=== PATIENT | female | born 1945 | race Hispanic/Latino ===

== ENCOUNTER 2017-08-09 12:43 | Outpatient (CLI) | payer MEDICARE, BC ==
--- NOTE | 2017-08-09 14:17 | CT ---
CTA OF THE CHEST CTA OF THE ABDOMEN CTA OF THE PELVIS WITH CONTRAST: COMPARISON: 07/27/16. HISTORY: Thoracic aortic aneurysm repair in 2014. History of breast cancer status post chemotherapy. TECHNIQUE: Multiple contiguous axial images were obtained in a CTA of the chest, abdomen, and pelvis with contr ast. Three-D sagittal and coronal MIP reformats were performed. FINDINGS: The patient is status post stent graft repair of the descending thoracic aorta with overlapping sten ts. The aorta measures 2.9 cm in greatest dimension. The stent extends from below the takeoff of t he left subclavian artery down to just below the diaphragm and above the celiac trunk. The ascendin g aorta in the chest has a normal caliber without evidence of aneurysmal dilatation. The heart is normal in size without focal cardiac abnormality. No hilar or mediastinal lymphadenopa thy are seen. Increased interstitial lung markings are seen along the periphery of the lungs. This is most promin ent in the lung apices and in the lung bases. Bronchiectasis is seen in both lung apices. No suspi cious pulmonary mass is seen. No pneumothorax or pleural effusion is present. The bones of the thorax and thoracic wall soft tissues are unremarkable. The patient is status post cholecystectomy. The liver, kidneys, adrenal glands, spleen, and pancrea s are unremarkable. No free air, free fluid, or stranding changes are seen in the abdomen or pelvis . There are a few scattered diverticula in the colon. The small bowel is unremarkable. The reprod uctive organs are unremarkable. No abdominal or pelvic lymphadenopathy are seen. The bones of the pelvis and lumbar spine are unrem arkable. The abdominal wall soft tissues are unremarkable. IMPRESSION: 1. Status post repair of descending thoracic aortic aneurysm with stent grafts. There is no eviden ce of complication at this time. 2. Chronic interstitial lung disease within the lungs remains stable. 3. Diverticulosis. POS: [facility]
[2017-08-09] MEDS ORDERED: Iopamidol 370 76% 100 ML VIAL ONE (14:30)
== END 2017-08-09 12:44 | disposition home or self-care (01) ==
LOC: CT 12:43
PROVIDERS: ATTEND Physician Assistant
DX: I71.2 Thoracic aortic aneurysm, without rupture (principal); J98.4 Other disorders of lung; K57.90 Diverticulosis of intestine, part unspecified, without perforation or abscess without bleeding
CPT/HCPCS: 71275; 74174

== ENCOUNTER 2017-11-27 09:03 | Outpatient (CLI) | payer MEDICARE, BC ==
--- NOTE | 2017-11-28 15:55 | PFT ---
PATIENT HISTORY: HEIGHT: 60 IN WEIGHT: 95 SMOKER: NO HOW LONG: PACKS PER DAY PRODUCTIVE COUGH: NO LUNG DISEASE: PHYSICIAN INTERPRETATION FINAL REPORT: Moderate reduction vital capacity is present with a mild reduction in expiratory flows. No further improvement after bronchodilator therapy RV is normal RV/TLC is increased. Gas transfer was severely reduced. IMPRESSION: Restrictive pulmonary impairment. Very severe reduction in diffusing capacity. Analytics Intern: JAMILA Rotor Pilot: JAMILA SHARIF
== END 2017-11-27 09:04 | disposition home or self-care (01) ==
LOC: CP 09:03
PROVIDERS: ATTEND Internal Medicine Critical Care Medicine
DX: J84.9 Interstitial pulmonary disease, unspecified (principal)
CPT/HCPCS: 94060; 94727; 94729

== ENCOUNTER 2017-12-03 15:25 | Emergency (ER) | payer MEDICARE, BC ==
[~2017-12-03 15:25] MED LIST: ISOVUE-370 76%-LOCM 1 ML ONE
[2017-12-03 17:38] LABS: Hemoglobin 11.7 g/dL (12.0-16.0); Mean Corpuscular HGB CONC 33.9 g/dL (32.0-36.0); Mean Corpuscular Hemoglobin 36.1 pg (27.0-31.0); Mean Platelet Volume 7.9 fL (7.4-10.4); Platelet Count 235 thou/uL (130-400); Red Blood Cell (RBC) Count 3.25 mill/uL (4.20-5.40); White Blood Cell (WBC) Count 7.5 thou/uL (4.8-10.8)
[2017-12-03 17:45] LABS: ALT (SGPT) 18 U/L (8-55); AST (SGOT) 24 U/L (5-34); Albumin 4.3 g/dL (3.4-4.8); Alkaline Phosphatase 120 U/L (40-150); Anion Gap 13 mmol/L (10-20); BUN (Urea Nitrogen) 24 mg/dL (9.8-20.1); Bilirubin, Total 0.5 mg/dL (0.2-1.2); Calc. Creatinine Clearance 0 mL/min (70-130); Calcium 9.7 mg/dL (7.8-10.44); Carbon Dioxide 26 mmol/L (23-31); Chloride 104 mmol/L (98-107); Estimated GFR-MDRD 76; Globulin 3.9 g/dL (2.4-3.5); Glucose 91 mg/dL (83-110); Potassium 4.1 mmol/L (3.5-5.1); Protein, Total 8.2 g/dL (6.0-8.3); Sodium 139 mmol/L (136-145)
[2017-12-03 17:49] LABS: CKMB 1.1 ng/mL (0-6.6); Troponin I 0.012 ng/mL (< 0.028)
[2017-12-03 17:57] LABS: #Basophils 0.1 thou/uL (0.0-0.2); #Eosinphils 0.2 thou/uL (0.0-0.7); #Lymphocytes 2.5 thou/uL (1.20-3.40); #Monocytes 0.6 thou/uL (0.11-0.59); #Neutrophils 4.1 thou/uL (1.40-6.50); %Eosinophils 2.7 % (0.0-10.0); %Lymphocytes 33.4 % (21.0-51.0); %Monocytes 8.4 % (0.0-10.0); %Neutrophils 54.6 % (42.0-75.0); MDiff Complete? YES; Macrocytosis SLIGHT = 6-15 cells (100X) (0-5/hpf); PLT Morphology Comment Appears Adequate
--- NOTE | 2017-12-03 18:18 | RAD ---
PORTABLE CHEST: History: Chest pain. Comparison: 01-27-17 FINDINGS: Interstitial prominence again noted. There are patchy areas of parenchymal opacity in the apices with apical pleural thickening. These findings appear stable and chronic. Large aortic stent graft is aga in noted. Clips in the right axillary are again noted from prior breast surgery. No evidence of acute infiltrate or acute change when compared to the prior exam. IMPRESSION: Chronic lung changes which appear stable. POS: [facility]
--- NOTE | 2017-12-03 20:03 | CT ---
CT AORTOGRAM OF THE CHEST AND ABDOMEN WITH IV CONTRAST: Technique: Multiple axial tomograms were obtained of the aorta from the aortic arch through the aorti c bifurcation in the arterial phase with angio protocol and multiplanar reconstruction and 3D post pr ocessing performed. Clinical history: Chest pain. History of aortic dissection. FINDINGS: There is an aortic stent graft involving the descending thoracic aorta. There is no evidence of recur rent dissection. There is no evidence of aneurysmal dilatation. No evidence of endo leak. The abdominal aorta is unremarkable and normal caliber. Aortic bifurcation is unremarkable. Aortic br anches are unremarkable. There are chronic lung parenchymal changes with diffuse interstitial thickening. Prominent apical ple ural thickening and parenchymal opacification with bronchiectasis. The liver shows fatty infiltration. The spleen and pancreas are unremarkable. The kidneys are unremar kable. Bowel loops are unremarkable. IMPRESSION: 1. No evidence of aortic dissection or other acute process. 2. There are chronic lung parenchymal changes as described. POS: [facility]
== END 2017-12-03 20:22 | disposition home or self-care (01) ==
LOC: ERS 15:25
DX: M54.6 Pain in thoracic spine (principal); R07.9 Chest pain, unspecified; E78.5 Hyperlipidemia, unspecified; Z85.3 Personal history of malignant neoplasm of breast; Z79.899 Other long term (current) drug therapy
CPT/HCPCS: 71045; 71275; 80053; 82553; 83605; 84484; 85025; 93005; 94760

== ENCOUNTER → 2017-12-30 | Outpatient (CLI) | payer MEDICARE, BC ==
--- NOTE | 2017-12-30 10:06 | RAD ---
PA AND LATERAL OF THE CHEST: INDICATION: History of cough. COMPARISON: Prior exam dated 12/03/17. FINDINGS: Chronic lung changes are stable. Aortic endograft is unchanged. Osseous structures are similar-appe aring. Surgical clips are seen within the right upper quadrant and right axilla. IMPRESSION: 1. Stable chronic lung changes. 2. Stable endograft stent when compared to the prior dated 12/03/17. POS: [facility]
== END ==
LOC: RAD-BREN 15:43
PROVIDERS: ATTEND Internal Medicine Critical Care Medicine
DX: R05 Cough (principal); Z95.828 Presence of other vascular implants and grafts
CPT/HCPCS: 71046

== ENCOUNTER 2018-02-26 09:33 | Observation (INO) | payer MEDICARE, BC ==
[2018-02-26] MEDS ORDERED: Ondansetron ODT 8 MG TAB ONE (10:27)
[2018-02-26] MEDS ORDERED: Sucralfate 1 GM/10 ML UDCUP ONE (10:27)
[2018-02-26 10:48] LABS: #Lymphocytes 1.1 thou/uL (1.20-3.40); #Monocytes 0.2 thou/uL (0.11-0.59); #Neutrophils 4.7 thou/uL (1.40-6.50); %Basophils 0.3 % (0.0-1.0); %Eosinophils 0.3 % (0.0-10.0); %Lymphocytes 18.1 % (21.0-51.0); %Monocytes 3.8 % (0.0-10.0); %Neutrophils 77.5 % (42.0-75.0); Hemoglobin 11.8 g/dL (12.0-16.0); Mean Corpuscular HGB CONC 34.4 g/dL (32.0-36.0); Mean Corpuscular Hemoglobin 35.8 pg (27.0-31.0); Mean Platelet Volume 7.2 fL (7.4-10.4); Platelet Count 202 thou/uL (130-400); RBC Distribution Width 12.2 % (11.5-14.5); Red Blood Cell (RBC) Count 3.29 mill/uL (4.20-5.40)
[2018-02-26 11:08] LABS: ALT (SGPT) 23 U/L (8-55); AST (SGOT) 24 U/L (5-34); Albumin 4.1 g/dL (3.4-4.8); Alkaline Phosphatase 83 U/L (40-150); Anion Gap 14 mmol/L (10-20); BUN (Urea Nitrogen) 21 mg/dL (9.8-20.1); Bilirubin, Total 0.8 mg/dL (0.2-1.2); Calc. Creatinine Clearance 0 mL/min (70-130); Calcium 8.9 mg/dL (7.8-10.44); Carbon Dioxide 22 mmol/L (23-31); Chloride 105 mmol/L (98-107); Estimated GFR-MDRD 83; Globulin 3.8 g/dL (2.4-3.5); Glucose 98 mg/dL (83-110); Lipase 22 U/L (8-78); Potassium 3.9 mmol/L (3.5-5.1); Protein, Total 7.9 g/dL (6.0-8.3); Sodium 137 mmol/L (136-145)
[2018-02-26] MEDS ORDERED: Magnesium Sulfate 2 GM/100 ML BAG ONE (11:11)
[2018-02-26 11:36] LABS: Bilirubin Negative (Negative); Blood, Urine Negative (Negative); Clarity CLEAR (Clear); Glucose, Urine (Dipstick) Negative (Negative); Leukocyte Negative (Negative); Nitrite Negative (Negative); Protein, Urine (Dipstick) Negative (Neg-Trace); Specific Gravity, Urine 1.012 (1.002-1.036); Urobilinogen 0.2 mg/dL (0.2-1.0); pH, Urine 5.5 (5.0-9.0)
[2018-02-26 13:30] LABS: CKMB 0.8 ng/mL (0-6.6); Troponin I Less than 0.010 ng/mL (< 0.028)
--- NOTE | 2018-02-26 14:06 | RAD ---
PORTABLE CHEST ONE VIEW: Date: 02-26-18 Time: 1:45 p.m. History: Cough. FINDINGS: Comparison is made with exam of 12-30-17. Endograft in the ureter is stable. Post op change in the right axilla are again seen. The heart size is normal. Chronic changes in the lung hanson are again seen. No lobar consolidation, pneumothoraces, or pleural effusions are identified. There are post op changes of cholecystectomy. IMPRESSION: Stable exam. No acute process. POS: [facility]
--- NOTE | 2018-02-26 16:32 | PDOC.EVN ---
Event Note - Event Note Event Note: H&P #[id number]
[2018-02-26] MEDS ORDERED: Ondansetron HCl/PF 4 MG/2 ML Vial IVP PRN (16:33)
[2018-02-26] MEDS ORDERED: Zolpidem Tartrate 5 MG TAB PO PRN (16:33)
[2018-02-26] MEDS ORDERED: Acetaminophen 325 MG TAB PO PRN (16:33)
[2018-02-26 17:14] LABS: Troponin I Less than 0.010 ng/mL (< 0.028)
--- NOTE | 2018-02-26 17:43 | RAD ---
KUB: 02/26/18 COMPARISON: None. HISTORY: Nausea, vomiting and diarrhea. FINDINGS: Supine imaging limits assessment for free intraperitoneal air and small bowel obstruction. Incomplete ly imaged stent graft material overlies the left upper quadrant medially, likely associated with the proximal abdominal aorta. Clips in right upper quadrant suggests prior cholecystectomy. The bowel gas pattern is nonobstructed. IMPRESSION: No acute findings. POS: [facility]
[2018-02-26] MEDS: Sodium Chloride 0.9% 1,000 ML IV SCH (17:54)
[2018-02-26 19:48] LABS: Folate (Folic Acid) 12.7 ng/mL (7.0-31.4)
--- NOTE | 2018-02-26 20:40 | HP ---
CHIEF COMPLAINT: Abdominal pain, nausea, vomiting. HISTORY OF PRESENT ILLNESS: This is a 72-year-old female presenting with abdominal pain, nausea, vom iting. States that her whole family is sick, she is surrounded by children, overall feeling experien priscilla the same symptoms. Patient presents with diarrhea, nausea, and vomiting, nonbloody in nature, st arted approximately yesterday and has been continued to get worse over the last 24 hours. Patient de nies any other associated symptoms or complaints. No fevers, chills, chest pain, shortness of breath . States that this has happened to her once when she was a little girl at age 5, otherwise, she does not have any other medical conditions. ALLERGIES: ASPIRIN. HOME MEDICATIONS: She cannot recall states that she takes something for cholesterol, but is not sure . PAST MEDICAL HISTORY: Hyperlipidemia as well as coronary artery disease. FAMILY HISTORY: Positive for stroke on her mother's side, hypertension on her dad's side. SOCIAL HISTORY: No drinking or smoking. REVIEW OF SYSTEMS: All systems reviewed. Pertinent positives in the HPI, otherwise negative. PHYSICAL EXAMINATION: VITAL SIGNS: Blood pressure 111/68, respiratory rate of 18, temperature of 98, pulse of 86. GENERAL: Patient sitting in bed comfortably in no acute distress. HEENT: Pupils equal, round, react to light and accommodation bilaterally. Extraocular muscles intac t bilaterally. Oral cavity moist and pink. NECK: Supple, nontender, thyroid. CARDIOVASCULAR: Regular rate and rhythm. S1 and S2. No murmurs, rubs, or gallops appreciated. PULMONARY: Clear to auscultation bilaterally. No wheezing, rhonchi, or rales appreciated. Aerating well. No respiratory distress. ABDOMEN: Positive bowel sounds, soft, nontender. No rebound or guarding. EXTREMITIES: 2+ peripheral pulses bilaterally. No edema bilaterally. NEUROLOGIC: Alert, oriented x3. Cranial nerves II-XII intact bilaterally and no loss of motor or se nsory function. LABORATORY DATA: CBC shows hemoglobin of 11.8, MCV of 104, otherwise normal. BMP shows BUN of 21, o therwise normal. Urinalysis is negative as well. Chest x-ray was done shows no acute cardiopulmonar y process. ASSESSMENT AND PLAN: 1. Abdominal pain. 2. Diarrhea. 3. Nausea. 4. QT prolongation on EKG. PLAN: At this point in time, we will admit patient to tele observation. Do EKG in the a.m. Troponi n trends. We will also place the patient on fluids. Start patient on antiemetics. Resume home medi cations as appropriate. Start patient on clear-liquid diet and advance as tolerated. SCDs and Radha nix for GI and DVT prophylaxis. Patient wishes to remain a FULL CODE at this point in time. After d iscussion of code evaluation, case and plan otherwise discussed with the patient at length. She unde rstands and agrees with this plan.
[2018-02-26] MEDS: Famotidine 20 MG TAB PO SCH (21:13)
[2018-02-27] MEDS ORDERED: Benzonatate 100 MG CAP PO PRN (00:36)
[2018-02-27 01:12] LABS: Troponin I 0.014 ng/mL (< 0.028)
[2018-02-27] MEDS: Sodium Chloride 0.9% 1,000 ML IV SCH (08:12)
[2018-02-27] MEDS: Famotidine 20 MG TAB PO SCH (08:12)
[2018-02-27 08:42] LABS: Troponin I Less than 0.010 ng/mL (< 0.028)
[2018-02-27] MEDS ORDERED: Calcium Carbonate + Vit D 1 TAB PO SCH (09:00)
[2018-02-27] MEDS ORDERED: B12 PO SCH (09:00)
[2018-02-27] MEDS ORDERED: [UNRECOGNIZED DRUG - OTHER] PO SCH (09:00)
--- NOTE | 2018-02-27 11:37 | EKG ---
Test Reason : Blood Pressure : / mmHG Vent. Rate : 056 BPM Atrial Rate : 056 BPM P-R Int : 154 ms QRS Dur : 086 ms QT Int : 484 ms P-R-T Axes : 055 018 027 degrees QTc Int : 467 ms Sinus bradycardia T wave abnormality, consider anterior ischemia Abnormal ECG When compared with ECG of 26-FEB-2018 12:54, (Unconfirmed) QRS duration has decreased Criteria for Anterior infarct are no longer Present Criteria for Inferior infarct are no longer Present T wave inversion now evident in Anterior leads Confirmed by DR. Miryam QUINONES ([id number]) on 02/27/2018 11:36:52 AM Referred By: SPENCER Confirmed By:DR. Miryam QUINONES
[2018-02-27 12:03] VITALS: BP 131/61; TEMP 98.4
--- NOTE | 2018-02-27 15:24 | DIS ---
DATE OF ADMISSION: 02/26/2018 DATE OF DISCHARGE: 02/27/2018 PRIMARY CARE PHYSICIAN: Listed as Dr. Natalie Galaviz. DISCHARGE DIAGNOSES: 1. Viral gastroenteritis. 2. Mild dehydration. 3. History of thoracic aortic aneurysm. 4. Coronary artery disease without angina. CONSULTATIONS: None. PROCEDURES: None. HISTORY AND PHYSICAL: Ms. Child is a 72-year-old female with the above history who not ed multiple people throughout her house in the last week with a diarrheal illness. She developed aman sea, vomiting, diarrhea 24 hours prior to presentation. His symptoms seem to be getting worse. She presented to the emergency department for evaluation. She was seen and evaluated in the ER, felt to be mildly dehydrated. She was feeling weak and subsequ ently was placed in the hospital on observation. Overnight, she had no further nausea, vomiting or d iarrhea. She was able to tolerate p.o., with mild nausea, but resolved. Her main complaint today was nonproductive cough. She has had this for quite some time. The patient had negative biomarkers x3, vitals were stable. Intake exceeded output and she was stabl e for discharge with outpatient followup. PHYSICAL EXAMINATION: The patient was seen and examined on date of discharge. Discharge plan and disposition was discussed with the patient face to face at the bedside. DISCHARGE MEDICATIONS: 1. Tessalon Perles 100 mg p.o. q.8 h. p.r.n., new prescription sent. 2. Flonase 16 grams 2 sprays each naris daily, prescription for one bottle, two refills stent. 3. Calcium carbonate. 4. Iron polysaccharide, B12 and folic acid tablet daily. FOLLOWUP APPOINTMENTS: Dr. Galaviz in 1-2 weeks. DISCHARGE CONDITION: Stable. DISPOSITION: Being discharged home via private vehicle. DIET: Heart healthy recommended. Kern diet recommended. DISCHARGE ACTIVITY: As tolerated.
== END 2018-02-27 13:00 | disposition home or self-care (01) ==
LOC: ERS 09:33 → 2SW 15:10
PROVIDERS: ADMIT Internal Medicine; ATTEND Internal Medicine
DX: A08.4 Viral intestinal infection, unspecified (principal); E86.0 Dehydration; I25.10 Atherosclerotic heart disease of native coronary artery without angina pectoris; E78.5 Hyperlipidemia, unspecified; Z88.8 Allergy status to other drugs, medicaments and biological substances
CPT/HCPCS: 71045; 74018; 81003; 82553; 82607; 82746; 83690; 83735; 84484 ×4; 93005 ×2; 96361 ×3; 96365; 99285; G0378; 36415; 80053; 84443; 85025; 93010; J3475

== ENCOUNTER 2018-06-27 11:50 | Outpatient (CLI) | payer MEDICARE, BC | END 2018-06-27 11:51 | disposition home or self-care (01) | LOC: CP 11:50 | PROVIDERS: ATTEND Internal Medicine Critical Care Medicine | DX: J84.112 Idiopathic pulmonary fibrosis (principal) | CPT/HCPCS: 94060; 94727; 94729 ==

== ENCOUNTER 2018-08-05 14:14 | Outpatient (CLI) | payer MEDICARE, BC ==
[2018-08-05 10:10] LABS: Estimated GFR-MDRD - POC Greater than 90
--- NOTE | 2018-08-05 11:01 | CT ---
CTA CHEST WITH CONTRAST: Comparison: 08-09-17 History: Thoracic aneurysm, status post stent graft repair. Evaluate for stability of the thoracic an eurysm. Technique: Multiple contiguous axial images were obtained in a CTA of the chest with contrast. 3D sag ittal and coronal MIP reformats were performed. FINDINGS: The patient is status post stent graft repair of the descending thoracic aorta with a stent graft. Th is stent graft starts distal to the left subclavian artery bifurcation and extends down to the suprac eliac location of the abdominal aorta. The thoracic aorta is table in size measuring 3.[address] dimension. There is slight separation of the two pieces of the stent graft along its midportion wh ich has not significantly changed and there is no evidence of an endoleak. Increased interstitial markings are seen in the peripheral aspect of the lungs, more prominent in the apices. Bronchiectasis is seen in the lung apices. No pleural effusions or pneumothorax are seen. The heart is normal in size without focal cardiac abnormality. No hilar or mediastinal lymphadenopath y are seen. The patient is status post cholecystectomy. The other visualized subdiaphragmatic structures are unre markable. Mild degenerative changes are seen in the spine. IMPRESSION: 1. Stable repair of descending thoracic aortic aneurysm. 2. Interstitial lung disease and bronchiectasis in the bilateral lung apices. POS: [facility]
[2018-08-05] MEDS ORDERED: Iopamidol 370 76% 100 ML VIAL ONE (15:13)
== END 2018-08-05 14:15 | disposition home or self-care (01) ==
LOC: BICMAMMO 14:14
PROVIDERS: ATTEND Family Medicine
DX: I71.2 Thoracic aortic aneurysm, without rupture (principal); J47.9 Bronchiectasis, uncomplicated; J84.9 Interstitial pulmonary disease, unspecified
CPT/HCPCS: 71275; 82565

== ENCOUNTER 2018-12-31 09:30 | Outpatient (CLI) | payer MEDICARE, BC ==
--- NOTE | 2019-01-02 10:37 | PFT ---
PATIENT HISTORY: HEIGHT: 60 IN WEIGHT: 95 SMOKER: NEVER HOW LONG: PACKS PER DAY: PRODUCTIVE COUGH: LUNG DISEASE: PHYSICIAN INTERPRETATION FEV1 0.85 L, 48% predicted. There is no improvement in FEV1 after Bronchodilatation. FVC is 0.97 L, 42% predicted. Total Lung Capacity 3.18 L, 74 % predicted. DLCO is 6.84 L, 36% predicted. Compared to a study from 2018 the DLCO has increased. The Total Lung Capacity is about the same. The FEV1 and FVC are somewhat down, but I think that is a patient effort problem. IMPRESSION: This is a severe restrictive impairment with severe gas exchange impairment, consistent with her diagnosis of IPF. Carpenter'S Assistant: JAMILA Comic Writer: JAMILA SHARIF
== END 2018-12-31 09:31 | disposition home or self-care (01) ==
LOC: CP 09:30
PROVIDERS: ATTEND Internal Medicine Critical Care Medicine
DX: J84.9 Interstitial pulmonary disease, unspecified (principal)
CPT/HCPCS: 36415; 80076; 94060; 94727; 94729

== ENCOUNTER 2019-05-25 09:54 | Emergency (ER) | payer MEDICARE, BC ==
[2019-05-25 11:08] LABS: Hemoglobin 10.7 g/dL (12.0-16.0); Mean Corpuscular HGB CONC 34.1 g/dL (32.0-36.0); Mean Corpuscular Hemoglobin 36.2 pg (27.0-31.0); Mean Platelet Volume 7.1 fL (7.4-10.4); Platelet Count 191 thou/uL (130-400); RBC Distribution Width 13.5 % (11.5-14.5); Red Blood Cell (RBC) Count 2.95 mill/uL (4.20-5.40); White Blood Cell (WBC) Count 11.2 thou/uL (4.8-10.8)
--- NOTE | 2019-05-25 11:08 | RAD ---
PORTABLE CHEST 1 VIEW: Date: 05/25/19 Time: 1018 hours HISTORY: Cough. FINDINGS/IMPRESSION: Comparison made with exam of 09/11/18. The heart size is normal. Aortic endograft is again seen. Lungs are well expanded. Chronic changes ar e again seen. There is interval prominence of the interstitial markings since the last exam. No lobar consolidation, pneumothoraces, or large effusions are seen. Postop changes in the right axilla and right upper quadrant are again noted. POS: [facility]
[2019-05-25 11:22] LABS: ALT (SGPT) 70 U/L (8-55); AST (SGOT) 49 U/L (5-34); Albumin 3.5 g/dL (3.4-4.8); Alkaline Phosphatase 158 U/L (40-150); Anion Gap 12 mmol/L (10-20); BUN (Urea Nitrogen) 13 mg/dL (9.8-20.1); Bilirubin, Total 2.2 mg/dL (0.2-1.2); Calc. Creatinine Clearance 0 mL/min (70-130); Calcium 9.1 mg/dL (7.8-10.44); Carbon Dioxide 26 mmol/L (23-31); Chloride 97 mmol/L (98-107); Estimated GFR-MDRD 80; Globulin 4.2 g/dL (2.4-3.5); Glucose 100 mg/dL (83-110); Potassium 3.4 mmol/L (3.5-5.1); Protein, Total 7.7 g/dL (6.0-8.3); Sodium 132 mmol/L (136-145)
[2019-05-25 11:31] LABS: #Eosinphils 0.1 thou/uL (0.0-0.7); #Lymphocytes 1.6 thou/uL (1.20-3.40); #Monocytes 0.8 thou/uL (0.11-0.59); #Neutrophils 8.8 thou/uL (1.40-6.50); %Basophils 0.2 % (0.0-1.0); %Eosinophils 1.1 % (0.0-10.0); %Lymphocytes 13.9 % (21.0-51.0); %Monocytes 6.8 % (0.0-10.0); %Neutrophils 78.1 % (42.0-75.0); MDiff Complete? YES; Ovalocytes MODERATE= 6-15 cells (100X) (0-1/hpf); Platelet Morphology Comment Appears Adequate
[2019-05-25] MEDS ORDERED: ISOVUE-370 76%-LOCM 1 ML ONE (12:01)
--- NOTE | 2019-05-25 12:33 | CT ---
CT PULMONARY ANGIOGRAM WITH IV CONTRAST AND 3D POSTPROCESSING: Date: 05/25/19 HISTORY: Cough. COMPARISON: 08/05/18. FINDINGS: Postop changes of stent graft repair of the descending thoracic aorta starting distal to the left sub clavian artery bifurcation and extending down in the supraceliac aspect of the abdominal aorta is aga in seen. No intimal flap is seen in the well-opacified thoracic aorta to suggest dissection. There is good contrast opacification of the pulmonary arterial vasculature without filling defects to suggest pulmonary embolism. No pleural or pericardial effusions are seen. Chronic changes in the lung hanson are again seen. New patchy areas of consolidation are noted, parti cularly in the right lower lobe. There are degenerative changes in the spine. IMPRESSION: 1. No CT evidence of pulmonary embolism. 2. Chronic interstitial lung disease with superimposed patchy areas of consolidation suspicious for pneumonia. POS: [facility]
== END 2019-05-25 13:07 | disposition home or self-care (01) ==
LOC: ERS 09:54
DX: J18.9 Pneumonia, unspecified organism (principal); E78.5 Hyperlipidemia, unspecified; Z79.899 Other long term (current) drug therapy
CPT/HCPCS: 36415; 71045; 71275; 80053; 84484; 85025; 85379; 93005; Q9966

== ENCOUNTER 2019-07-08 09:18 | Outpatient (CLI) | payer MEDICARE, BC ==
[2019-07-08 10:04] LABS: Estimated GFR-MDRD - POC Greater than 90
--- NOTE | 2019-07-08 10:56 | CT ---
CTA CHEST WITH CONTRAST: Date: 07/08/19 Axial tomograms obtained with multiplanar reconstruction and 3D postprocessing following angio protoc ol. INDICATION: Follow-up thoracic aortic aneurysm. Comparison made to CTA chest dated 05/25/19. FINDINGS: The thoracic aorta is well opacified. There is fusiform aneurysmal dilatation of the descending thora cic aorta. Aortic stent graft has been placed. The stent graft is patent. There is no evidence of dis section or endoleak. The diameter of the descending thoracic aorta measures up to 3.0 cm and is stabl e. The ascending aorta and aortic arch appear unremarkable. Pulmonary arteries are well opacified and appear unremarkable. No evidence of pulmonary embolus. There are chronic lung parenchymal changes again noted. Diffuse interstitial thickening and stranding bilaterally. There is hazy ground-glass opacity in the periphery of both lungs extending to the pleu ral surfaces in the upper lobes. This is stable. Upper lobe bronchiectasis is stable. No effusion or acute infiltrate identified. Mediastinum unremarkable. Images through upper abdomen unremarkable. IMPRESSION: 1. Fusiform aneurysmal dilatation of descending thoracic aorta is stable. Aortic stent graft is ibarra nt. There is no change from the prior study. 2. Chronic lung parenchymal changes are again noted, which appear stable. No acute lung process iden tified. POS: [facility]
[2019-07-08] MEDS ORDERED: Iopamidol 370 76% 100 ML VIAL ONE (11:09)
== END 2019-07-08 09:19 | disposition home or self-care (01) ==
LOC: CT 09:18
PROVIDERS: ATTEND Family Medicine
DX: I71.2 Thoracic aortic aneurysm, without rupture (principal); J98.4 Other disorders of lung
CPT/HCPCS: 36415; 71275; 80076; 82565; Q9967

== ENCOUNTER 2019-08-21 07:51 | Outpatient (CLI) | payer MEDICARE, BC ==
--- NOTE | 2019-08-21 09:14 | ULT ---
Abdominal Ultrasound: Multiple grayscale images of right upper quadrant obtained according to protocol. INDICATION: Increased liver function enzymes FINDINGS: Liver: Hepatic steatosis. Gallbladder: Absent Common bile duct is normal. Ascites: None Spleen: Partially obscured, limiting assessment. Pancreas: Partially obscured by bowel content, limiting assessment. Kidneys: No acute abnormalities. Aorta/IVC: No acute process. IMPRESSION: Increased hepatic echogenicity, indicative of hepatic steatosis. Surgically absent gallbladder.
== END 2019-08-21 07:52 | disposition home or self-care (01) ==
LOC: ULT 07:51
PROVIDERS: ATTEND Family Medicine
DX: R74.8 Abnormal levels of other serum enzymes (principal); Z90.49 Acquired absence of other specified parts of digestive tract
CPT/HCPCS: 36415; 80074; 93975

== ENCOUNTER 2020-07-22 09:08 | Outpatient (CLI) | payer MEDICARE, BC ==
[2020-07-22] MEDS ORDERED: Iopamidol-370 76% 500 ML 1 ML ONE (09:30)
[2020-07-22 09:54] LABS: Estimated GFR-MDRD - POC Greater than 90
--- NOTE | 2020-07-22 13:24 | CT ---
CT ANGIOGRAM THORAX WITH AND WITHOUT IV CONTRAST AND 3-D RECONSTRUCTIONS CLINICAL INDICATION: Thoracic aortic aneurysm without rupture. Patient has history of prior endograft repair of thoracic a ortic aneurysm. COMPARISON: 07/08/2019 and 12/03/2017 FINDINGS: There is motion artifact throughout the chest, abdomen, and pelvis secondary to multiple coughing epi sodes occurring after the injection of intravenous contrast. This does limit evaluation. Again noted is evidence of endograft repair of a thoracic aortic aneurysm, stable when compared to pr ior exam. No aneurysm sac is seen, and there are no findings to suggest an endoleak. The ascending thoracic aorta and aortic arch are normal in caliber allowing for prominent motion artifact. Vascular calcifications are seen in the abdominal aorta, but the abdominal aorta is normal in caliber without evidence of an aortic dissection. Prominent motion limits adequate assessment of the mesenteric and renal arteries. There is limited evaluation of the iliac vessels in the lower pelvis d ue to significant artifact. The bilateral common iliac as well as proximal external and internal iliac arteries do appear otherwise patent. Again noted is evidence of chronic interstitial lung changes greater at the periphery of the lungs bi laterally. Bronchiectasis is again seen within the upper lobes greater on the right. No pleural effusion is seen. Postcholecystectomy changes are again seen. The liver, spleen, pancreas, bilateral adrenal glands, kidneys, urinary bladder, and uterus demonstra te a normal CT appearance for arterial phase of imaging and allowing for motion artifact which does limit evaluation. Evidence of colonic diverticulosis is again present. Small amount of retained fecal material is seen in the colon. Surgical clips are again seen in the right axillary region. No other interval change when compared to prior study. IMPRESSION: 1. Limited examination on arterial phase of imaging secondary to prominent motion throughout the ches t, abdomen, and pelvis related to patient coughing. 2. Stable thoracic aortic endograft repair of the descending thoracic aorta without evidence of an en doleak. 3. No evidence of an abdominal aortic aneurysm or dissection. 4. Stable chronic lung changes.
== END 2020-07-22 09:09 | disposition home or self-care (01) ==
LOC: BICCT 09:08
PROVIDERS: ATTEND Family Medicine
DX: I71.2 Thoracic aortic aneurysm, without rupture (principal); Z98.890 Other specified postprocedural states
CPT/HCPCS: 71275; 74174; 82565; Q9967

== ENCOUNTER 2021-09-29 10:17 | Emergency (ER) | payer MEDICARE, BC ==
[2021-09-29] MEDS ORDERED: Magnesium 2 GM/50 ML BAG (IN WATER) ONE (11:30)
[2021-09-29 11:40] LABS: #Basophils 0.1 thou/uL (0.0-0.2); #Eosinphils 0.1 thou/uL (0.0-0.7); #Monocytes 0.6 thou/uL (0.11-0.59); #Neutrophils 6.1 thou/uL (1.40-6.50); %Basophils 0.8 % (0.0-1.0); %Eosinophils 1.8 % (0.0-10.0); %Lymphocytes 12.9 % (21.0-51.0); %Monocytes 7.6 % (0.0-10.0); Mean Corpuscular HGB CONC 32.3 g/dL (32.0-36.0); Mean Corpuscular Hemoglobin 33.7 pg (27.0-31.0); Platelet Count 269 thou/uL (130-400); RBC Distribution Width 12.9 % (11.5-14.5); Red Blood Cell (RBC) Count 3.55 mill/uL (4.20-5.40); White Blood Cell (WBC) Count 7.9 thou/uL (4.8-10.8)
[2021-09-29 12:05] LABS: ALT (SGPT) 12 U/L (8-55); AST (SGOT) 19 U/L (5-34); Albumin 3.7 g/dL (3.4-4.8); Alkaline Phosphatase 69 U/L (40-110); Anion Gap 13 mmol/L (10-20); BUN (Urea Nitrogen) 17 mg/dL (9.8-20.1); Bilirubin, Total 0.4 mg/dL (0.2-1.2); Calc. Creatinine Clearance 0 mL/min (70-130); Calcium 9.6 mg/dL (7.8-10.44); Carbon Dioxide 26 mmol/L (23-31); Chloride 99 mmol/L (98-107); Globulin 4.3 g/dL (2.4-3.5); Glucose 100 mg/dL (83-110); Lipase 34 U/L (8-78); Sodium 135 mmol/L (136-145)
[2021-09-29 13:08] LABS: Bilirubin Negative (Negative); Blood, Urine Negative (Negative); Clarity Clear (Clear); Glucose, Urine (Dipstick) Normal (Negative); Ketone, Urine Negative (Negative); Leukocyte Negative Leu/uL (Negative); Nitrite Negative (Negative); Protein, Urine (Dipstick) Negative (Neg-Trace); Specific Gravity, Urine 1.022 (1.002-1.036); Urobilinogen Normal mg/dL (Less than 2)
[2021-09-29] MEDS ORDERED: Potassium Chloride 20 MEQ TAB ONE (14:29)
[2021-09-29] MEDS ORDERED: Pot Chloride/Pot Bicarb/Cit Ac 25 mEq Effervescent Tablet ONE (15:45)
== END 2021-09-29 17:35 | disposition home or self-care (01) ==
LOC: ERS 10:17
DX: R62.7 Adult failure to thrive (principal); R94.31 Abnormal electrocardiogram [ECG] [EKG]; I49.3 Ventricular premature depolarization; E78.5 Hyperlipidemia, unspecified; E78.00 Pure hypercholesterolemia, unspecified; Z68.31 Body mass index [BMI] 31.0-31.9, adult; Z85.3 Personal history of malignant neoplasm of breast; Z79.899 Other long term (current) drug therapy
CPT/HCPCS: 36415; 71275; 74174; 80053; 81003; 83605; 83690; 84484; 85025; 87040; 87086; 93005; 96365; J3475

== ENCOUNTER 2021-10-07 09:29 | Inpatient (IN) | payer MEDICARE, BC ==
[2021-10-07] MEDS ORDERED: Metoclopramide HCl 10 MG/2 ML VIAL IVP PRN (12:39)
[2021-10-07 12:43] VITALS: BMI 13.6
[2021-10-07] MEDS ORDERED: Electrolyte Replacement Protocol 1 EACH FS SCH (12:45)
[2021-10-07] MEDS ORDERED: Electrolyte Replacement Protocol FS PRN (14:00)
[2021-10-07] MEDS ORDERED: Morphine 4 MG/ML VIAL SLOW IVP PRN (14:02)
[2021-10-07] MEDS ORDERED: Albuterol Sulfate 2.5 mg/3 ml Neb NEB PRN (14:05)
[2021-10-07] MEDS: Sodium Chloride 0.9% 1,000 ML IV SCH ×3 (15:11→18:07)
[2021-10-07] MEDS: Pantoprazole 40 MG VIAL IVP SCH (15:11)
[2021-10-07] MEDS ORDERED: Potassium Chloride 40 MEQ in Sodium Chloride 0.9% 250 ML 250 ML IVPB SCH (16:00)
[2021-10-07 17:26] LABS: Lactic Acid 1.1 mmol/L (0.5-2.2)
[2021-10-07 20:16] LABS: Bacteria/HPF None Seen HPF (None Seen); Bilirubin Negative (Negative); Blood, Urine Negative (Negative); Clarity Clear (Clear); Glucose, Urine (Dipstick) Normal (Negative); Ketone, Urine 40 mg/dL (Negative); Leukocyte Negative Leu/uL (Negative); Nitrite Negative (Negative); Protein, Urine (Dipstick) Negative (Neg-Trace); RBC/HPF 0-3 HPF (0-3); Specific Gravity, Urine 1.013 (1.002-1.036); Squamous Epithelial None Seen HPF (0-3); Urobilinogen Normal mg/dL (Less than 2); WBC/HPF 0-3 HPF (0-3); pH, Urine 5.5 (5.0-9.0)
[2021-10-07 20:18] LABS: Urine Culture Reflex No No
[2021-10-07] MEDS: Metoclopramide HCl 10 MG/2 ML VIAL IVP PRN (20:43)
[2021-10-08 05:02] LABS: #Eosinphils 0.1 thou/uL (0.0-0.7); #Lymphocytes 1.2 thou/uL (1.20-3.40); #Neutrophils 8.8 thou/uL (1.40-6.50); %Basophils 0.4 % (0.0-1.0); %Eosinophils 0.6 % (0.0-10.0); %Lymphocytes 10.6 % (21.0-51.0); %Monocytes 9.1 % (0.0-10.0); %Neutrophils 79.4 % (42.0-75.0); Hemoglobin 10.8 g/dL (12.0-16.0); Mean Corpuscular HGB CONC 32.9 g/dL (32.0-36.0); Mean Corpuscular Hemoglobin 35.2 pg (27.0-31.0); Mean Platelet Volume 6.9 fL (7.4-10.4); Platelet Count 226 thou/uL (130-400); Red Blood Cell (RBC) Count 3.06 mill/uL (4.20-5.40); White Blood Cell (WBC) Count 11.1 thou/uL (4.8-10.8)
[2021-10-08 05:16] LABS: Anion Gap 17 mmol/L (10-20); BUN (Urea Nitrogen) 11 mg/dL (9.8-20.1); Calc. Creatinine Clearance 42 mL/min (70-130); Carbon Dioxide 16 mmol/L (23-31); Chloride 104 mmol/L (98-107); Glucose 67 mg/dL (83-110); Magnesium 1.7 mg/dL (1.6-2.6); Potassium 4.4 mmol/L (3.5-5.1); Sodium 133 mmol/L (136-145)
[2021-10-08] MEDS: Sodium Chloride 0.9% 1,000 ML IV SCH ×2 (06:04→19:49)
[2021-10-08] MEDS ORDERED: Magnesium 2 GM/50 ML 2 GM in Premix Bag 1 BAG IVPB SCH (07:00)
[2021-10-08] MEDS: Pantoprazole 40 MG VIAL IVP SCH (09:40)
[2021-10-08] MEDS ORDERED: Amino Acids 4.25 %/Dextrose 5% 2,000 ML BAG IV SCH (16:00)
[2021-10-08] MEDS: Amino Acids 4.25 %/Dextrose 5% 1,000 ML IV SCH (19:09)
[2021-10-08] MEDS: Morphine 4 MG/ML VIAL SLOW IVP PRN (20:59)
[2021-10-08] MEDS: Metoclopramide HCl 10 MG/2 ML VIAL IVP PRN (23:11)
[2021-10-08] MEDS ORDERED: Acetaminophen 325 MG TAB PO PRN (23:37)
[2021-10-08] MEDS ORDERED: Acetaminophen 650 MG Suppository PR PRN (23:52)
[2021-10-09 05:41] LABS: #Eosinphils 0.2 thou/uL (0.0-0.7); #Lymphocytes 0.9 thou/uL (1.20-3.40); #Monocytes 0.9 thou/uL (0.11-0.59); #Neutrophils 9.7 thou/uL (1.40-6.50); %Basophils 0.2 % (0.0-1.0); %Eosinophils 1.4 % (0.0-10.0); %Monocytes 7.6 % (0.0-10.0); %Neutrophils 82.8 % (42.0-75.0); Hemoglobin 10.6 g/dL (12.0-16.0); Mean Corpuscular HGB CONC 33.4 g/dL (32.0-36.0); Mean Platelet Volume 6.5 fL (7.4-10.4); Platelet Count 234 thou/uL (130-400); RBC Distribution Width 12.8 % (11.5-14.5); Red Blood Cell (RBC) Count 3.02 mill/uL (4.20-5.40); White Blood Cell (WBC) Count 11.7 thou/uL (4.8-10.8)
[2021-10-09 06:08] LABS: Anion Gap 10 mmol/L (10-20); BUN (Urea Nitrogen) 13 mg/dL (9.8-20.1); Calc. Creatinine Clearance 41 mL/min (70-130); Calcium 7.8 mg/dL (7.8-10.44); Carbon Dioxide 25 mmol/L (23-31); Chloride 95 mmol/L (98-107); Glucose 126 mg/dL (83-110); Sodium 127 mmol/L (136-145)
[2021-10-09 06:11] LABS: Potassium 2.8 mmol/L (3.5-5.1)
[2021-10-09 07:08] LABS: Magnesium 1.7 mg/dL (1.6-2.6)
[2021-10-09] MEDS ORDERED: Magnesium 2 GM/50 ML 2 GM in Premix Bag 1 BAG IVPB SCH (08:45)
[2021-10-09] MEDS: Pantoprazole 40 MG VIAL IVP SCH (09:01)
[2021-10-09] MEDS: Potassium Chloride 40 MEQ in Sodium Chloride 0.9% 250 ML 250 ML IVPB SCH ×2 (09:01→14:35)
[2021-10-09] MEDS ORDERED: MD-Gastroview 120 ML BOT ONE (09:41)
[2021-10-09] MEDS: Amino Acids 4.25 %/Dextrose 5% 1,000 ML IV SCH (12:51)
[2021-10-09 15:38] LABS: Anion Gap 11 mmol/L (10-20); BUN (Urea Nitrogen) 13 mg/dL (9.8-20.1); Calc. Creatinine Clearance 48 mL/min (70-130); Calcium 8.3 mg/dL (7.8-10.44); Carbon Dioxide 23 mmol/L (23-31); Chloride 98 mmol/L (98-107); Glucose 148 mg/dL (83-110); Potassium 3.9 mmol/L (3.5-5.1); Sodium 128 mmol/L (136-145)
[2021-10-09] MEDS ORDERED: Megestrol Acetate 800 MG/20 ML UDCUP PO SCH (21:00)
[2021-10-09] MEDS ORDERED: Benzonatate 100 MG CAP PO PRN (23:29)
[2021-10-10 05:54] LABS: #Eosinphils 0.2 thou/uL (0.0-0.7); #Monocytes 0.8 thou/uL (0.11-0.59); #Neutrophils 8.3 thou/uL (1.40-6.50); %Basophils 0.1 % (0.0-1.0); %Eosinophils 2.1 % (0.0-10.0); %Lymphocytes 9.4 % (21.0-51.0); %Monocytes 7.9 % (0.0-10.0); %Neutrophils 80.5 % (42.0-75.0); Hemoglobin 10.4 g/dL (12.0-16.0); Mean Corpuscular HGB CONC 33.1 g/dL (32.0-36.0); Mean Corpuscular Hemoglobin 34.4 pg (27.0-31.0); Platelet Count 225 thou/uL (130-400); RBC Distribution Width 12.8 % (11.5-14.5); Red Blood Cell (RBC) Count 3.01 mill/uL (4.20-5.40); White Blood Cell (WBC) Count 10.3 thou/uL (4.8-10.8)
[2021-10-10 06:26] LABS: Anion Gap 9 mmol/L (10-20); BUN (Urea Nitrogen) 16 mg/dL (9.8-20.1); Calc. Creatinine Clearance 47 mL/min (70-130); Calcium 8.5 mg/dL (7.8-10.44); Carbon Dioxide 25 mmol/L (23-31); Chloride 100 mmol/L (98-107); Glucose 124 mg/dL (83-110); Magnesium 2.1 mg/dL (1.6-2.6); Potassium 3.7 mmol/L (3.5-5.1); Sodium 130 mmol/L (136-145)
[2021-10-10] MEDS: Amino Acids 4.25 %/Dextrose 5% 1,000 ML IV SCH ×2 (06:38→22:46)
[2021-10-10] MEDS: Pantoprazole 40 MG VIAL IVP SCH (08:32)
[2021-10-10] MEDS: Megestrol Acetate 800 MG/20 ML UDCUP PO SCH (08:32)
[2021-10-10] MEDS: Guaifenesin DM 100-10/5 ML UDCUP PO PRN ×2 (15:39→22:53)
[2021-10-10 15:51] LABS: Anion Gap 12 mmol/L (10-20); BUN (Urea Nitrogen) 16 mg/dL (9.8-20.1); Calc. Creatinine Clearance 42 mL/min (70-130); Calcium 8.8 mg/dL (7.8-10.44); Carbon Dioxide 25 mmol/L (23-31); Chloride 99 mmol/L (98-107); Glucose 110 mg/dL (83-110); Potassium 3.8 mmol/L (3.5-5.1); Sodium 132 mmol/L (136-145)
[2021-10-10] MEDS: Dicyclomine 20 MG TAB PO SCH (22:45)
[2021-10-10] MEDS ORDERED: Dicyclomine 20 MG TAB PO SCH (23:59)
[2021-10-11] MEDS: Dicyclomine 20 MG TAB PO SCH ×4 (04:36→22:16)
[2021-10-11 05:17] LABS: Anion Gap 10 mmol/L (10-20); BUN (Urea Nitrogen) 16 mg/dL (9.8-20.1); Calc. Creatinine Clearance 44 mL/min (70-130); Calcium 8.8 mg/dL (7.8-10.44); Carbon Dioxide 23 mmol/L (23-31); Chloride 100 mmol/L (98-107); Glucose 105 mg/dL (83-110); Magnesium 1.9 mg/dL (1.6-2.6); Potassium 3.6 mmol/L (3.5-5.1); Sodium 129 mmol/L (136-145)
[2021-10-11] MEDS ORDERED: Magnesium 2 GM/50 ML 2 GM in Premix Bag 1 BAG IVPB SCH (06:00)
[2021-10-11] MEDS: Pantoprazole 40 MG VIAL IVP SCH (08:25)
[2021-10-11] MEDS: Megestrol Acetate 800 MG/20 ML UDCUP PO SCH (08:25)
[2021-10-11] MEDS: Guaifenesin DM 100-10/5 ML UDCUP PO PRN ×2 (12:42→20:42)
[2021-10-11 13:25] LABS: Anion Gap 12 mmol/L (10-20); BUN (Urea Nitrogen) 18 mg/dL (9.8-20.1); Calc. Creatinine Clearance 44 mL/min (70-130); Calcium 8.6 mg/dL (7.8-10.44); Carbon Dioxide 19 mmol/L (23-31); Chloride 101 mmol/L (98-107); Glucose 117 mg/dL (83-110); Potassium 3.6 mmol/L (3.5-5.1); Sodium 128 mmol/L (136-145)
[2021-10-11] MEDS: Amino Acids 4.25 %/Dextrose 5% 1,000 ML IV SCH (16:00)
[2021-10-11] MEDS: Sodium Chloride 1 GM TAB PO SCH (20:41)
[2021-10-11] MEDS: Morphine 4 MG/ML VIAL SLOW IVP PRN (20:42)
[2021-10-12 04:56] LABS: #Eosinphils 0.4 thou/uL (0.0-0.7); #Monocytes 0.7 thou/uL (0.11-0.59); #Neutrophils 5.4 thou/uL (1.40-6.50); %Basophils 0.2 % (0.0-1.0); %Eosinophils 4.8 % (0.0-10.0); %Lymphocytes 13.5 % (21.0-51.0); %Monocytes 8.8 % (0.0-10.0); %Neutrophils 72.7 % (42.0-75.0); Hemoglobin 10.1 g/dL (12.0-16.0); Mean Corpuscular Hemoglobin 34.8 pg (27.0-31.0); Mean Platelet Volume 6.8 fL (7.4-10.4); Platelet Count 250 thou/uL (130-400); Red Blood Cell (RBC) Count 2.91 mill/uL (4.20-5.40); White Blood Cell (WBC) Count 7.4 thou/uL (4.8-10.8)
[2021-10-12 05:43] LABS: Anion Gap 13 mmol/L (10-20); BUN (Urea Nitrogen) 19 mg/dL (9.8-20.1); Calc. Creatinine Clearance 44 mL/min (70-130); Calcium 8.8 mg/dL (7.8-10.44); Carbon Dioxide 19 mmol/L (23-31); Chloride 102 mmol/L (98-107); Glucose 104 mg/dL (83-110); Magnesium 2.1 mg/dL (1.6-2.6); Potassium 3.6 mmol/L (3.5-5.1); Sodium 130 mmol/L (136-145)
[2021-10-12] MEDS: Dicyclomine 20 MG TAB PO SCH ×4 (05:56→23:52)
[2021-10-12] MEDS ORDERED: Hydrocerin (Eucerin) Cream 120 gm Jar TOP PRN (09:52)
[2021-10-12] MEDS ORDERED: Artificial Tear Sol 15 ML BOT EA EYE PRN (09:52)
[2021-10-12] MEDS ORDERED: Sodium Chloride 0.65% Nasal 44 ML BOT EA NARE PRN (09:52)
[2021-10-12] MEDS ORDERED: hydrALAZINE 20 MG/ML VIAL SLOW IVP PRN (09:52)
[2021-10-12] MEDS ORDERED: Bisacodyl 5 MG TAB PO PRN (09:52)
[2021-10-12] MEDS ORDERED: Calcium Carbonate 500 MG ChewTAB PO PRN (09:52)
[2021-10-12] MEDS ORDERED: Loratadine 10 MG TAB PO PRN (09:52)
[2021-10-12] MEDS ORDERED: Senokot S 8.6-50 MG TAB PO PRN (09:52)
[2021-10-12] MEDS ORDERED: Ondansetron PF 4 MG/2 ML Vial IVP PRN (09:52)
[2021-10-12] MEDS ORDERED: Cepastat Lozenges 1 LOZ PO PRN (09:52)
[2021-10-12] MEDS ORDERED: Benzonatate 100 MG CAP PO PRN (09:53)
[2021-10-12] MEDS ORDERED: Melatonin 3 MG TAB PO PRN (09:53)
[2021-10-12] MEDS: Sodium Chloride 1 GM TAB PO SCH ×2 (10:09→21:16)
[2021-10-12] MEDS: Pantoprazole 40 MG VIAL IVP SCH (10:09)
[2021-10-12] MEDS: Megestrol Acetate 800 MG/20 ML UDCUP PO SCH (10:09)
[2021-10-12] MEDS: Amino Acids 4.25 %/Dextrose 5% 1,000 ML IV SCH (10:19)
[2021-10-12] MEDS: Guaifenesin DM 100-10/5 ML UDCUP PO PRN (21:44)
[2021-10-13] MEDS: Amino Acids 4.25 %/Dextrose 5% 1,000 ML IV SCH ×2 (02:30→19:46)
[2021-10-13] MEDS: Dicyclomine 20 MG TAB PO SCH ×4 (05:18→23:04)
[2021-10-13] MEDS: Megestrol Acetate 800 MG/20 ML UDCUP PO SCH (10:30)
[2021-10-13] MEDS: Sodium Chloride 1 GM TAB PO SCH ×2 (10:30→20:07)
[2021-10-13] MEDS: Folic Acid 1 MG TAB PO SCH (10:30)
[2021-10-13] MEDS: Pantoprazole 40 MG VIAL IVP SCH (10:30)
[2021-10-13] MEDS: Cyanocobalamin (Vitamin B-12) 1,000 MCG TAB PO SCH (10:30)
[2021-10-13] MEDS: Guaifenesin DM 100-10/5 ML UDCUP PO PRN (20:58)
[2021-10-14] MEDS: Dicyclomine 20 MG TAB PO SCH ×4 (05:37→23:10)
[2021-10-14] MEDS: Megestrol Acetate 800 MG/20 ML UDCUP PO SCH (07:56)
[2021-10-14] MEDS: Pantoprazole 40 MG VIAL IVP SCH (07:56)
[2021-10-14] MEDS: Folic Acid 1 MG TAB PO SCH (07:57)
[2021-10-14] MEDS: Sodium Chloride 1 GM TAB PO SCH ×2 (07:57→19:59)
[2021-10-14] MEDS: Cyanocobalamin (Vitamin B-12) 1,000 MCG TAB PO SCH (07:57)
[2021-10-14] MEDS: Guaifenesin DM 100-10/5 ML UDCUP PO PRN ×2 (08:06→19:58)
[2021-10-14] MEDS: Amino Acids 4.25 %/Dextrose 5% 1,000 ML IV SCH (12:37)
[2021-10-15] MEDS: Dicyclomine 20 MG TAB PO SCH ×2 (05:18→10:45)
[2021-10-15] MEDS: Guaifenesin DM 100-10/5 ML UDCUP PO PRN (05:35)
[2021-10-15] MEDS: Amino Acids 4.25 %/Dextrose 5% 1,000 ML IV SCH (05:36)
[2021-10-15 08:39] VITALS: BP 123/60; TEMP 98.7
[2021-10-15] MEDS: Pantoprazole 40 MG VIAL IVP SCH (08:56)
[2021-10-15] MEDS: Megestrol Acetate 800 MG/20 ML UDCUP PO SCH (08:56)
[2021-10-15] MEDS: Folic Acid 1 MG TAB PO SCH (08:56)
[2021-10-15] MEDS: Sodium Chloride 1 GM TAB PO SCH (08:56)
[2021-10-15] MEDS: Cyanocobalamin (Vitamin B-12) 1,000 MCG TAB PO SCH (08:56)
== END 2021-10-15 15:33 | disposition home health service (06) | DRG 388 ==
LOC: MSONC 10:46
PROVIDERS: ADMIT Family Medicine; ATTEND Internal Medicine
DX: K56.600 Partial intestinal obstruction, unspecified as to cause (principal); E43 Unspecified severe protein-calorie malnutrition; R64 Cachexia; E87.1 Hypo-osmolality and hyponatremia; Z68.1 Body mass index [BMI] 19.9 or less, adult; Z20.822 Contact with and (suspected) exposure to COVID-19; E86.0 Dehydration; I10 Essential (primary) hypertension; E78.5 Hyperlipidemia, unspecified; J84.112 Idiopathic pulmonary fibrosis; I71.9 Aortic aneurysm of unspecified site, without rupture; L89.152 Pressure ulcer of sacral region, stage 2; D53.9 Nutritional anemia, unspecified; E83.52 Hypercalcemia; I25.10 Atherosclerotic heart disease of native coronary artery without angina pectoris; Z85.3 Personal history of malignant neoplasm of breast; Z92.21 Personal history of antineoplastic chemotherapy; Z79.899 Other long term (current) drug therapy; Z88.6 Allergy status to analgesic agent; Z90.710 Acquired absence of both cervix and uterus; Z90.49 Acquired absence of other specified parts of digestive tract; Z90.13 Acquired absence of bilateral breasts and nipples
CPT/HCPCS: 36415; 74230; 74250; 80048; 81001; 83605; 83735; 83930; 83935; 84300; 85025; 94640; C9113; J2270; J2765; J3475; J3480; J7050; J7611; Q9963

== ENCOUNTER 2021-11-02 10:48 | Inpatient (IN) | payer MEDICARE, BC ==
[2021-11-02 11:50] LABS: #Eosinphils 0.1 thou/uL (0.0-0.7); #Lymphocytes 0.7 thou/uL (1.20-3.40); #Monocytes 0.5 thou/uL (0.11-0.59); #Neutrophils 7.7 thou/uL (1.40-6.50); %Basophils 0.3 % (0.0-1.0); %Eosinophils 0.7 % (0.0-10.0); %Lymphocytes 7.3 % (21.0-51.0); %Monocytes 5.1 % (0.0-10.0); %Neutrophils 86.5 % (42.0-75.0); Hemoglobin 11.4 g/dL (12.0-16.0); Mean Corpuscular HGB CONC 33.7 g/dL (32.0-36.0); Mean Platelet Volume 6.6 fL (7.4-10.4); Platelet Count 265 thou/uL (130-400); RBC Distribution Width 12.8 % (11.5-14.5); Red Blood Cell (RBC) Count 3.25 mill/uL (4.20-5.40); White Blood Cell (WBC) Count 8.9 thou/uL (4.8-10.8)
[2021-11-02 12:19] LABS: ALT (SGPT) 13 U/L (8-55); AST (SGOT) 18 U/L (5-34); Albumin 3.9 g/dL (3.4-4.8); Alkaline Phosphatase 77 U/L (40-110); Anion Gap 14 mmol/L (10-20); BUN (Urea Nitrogen) 27 mg/dL (9.8-20.1); Bilirubin, Total 0.8 mg/dL (0.2-1.2); Calc. Creatinine Clearance 0 mL/min (70-130); Calcium 9.8 mg/dL (7.8-10.44); Carbon Dioxide 25 mmol/L (23-31); Chloride 100 mmol/L (98-107); Globulin 4.7 g/dL (2.4-3.5); Glucose 103 mg/dL (83-110); Potassium 3.4 mmol/L (3.5-5.1); Protein, Total 8.6 g/dL (5.8-8.1); Sodium 136 mmol/L (136-145)
[2021-11-02 12:36] LABS: Bacteria/HPF None Seen HPF (None Seen); Bilirubin Negative (Negative); Blood, Urine Negative (Negative); Clarity Clear (Clear); Glucose, Urine (Dipstick) Normal (Negative); Ketone, Urine 10 mg/dL (Negative); Leukocyte Negative Leu/uL (Negative); Nitrite Negative (Negative); Protein, Urine (Dipstick) 30 mg/dL (Neg-Trace); RBC/HPF 0-3 HPF (0-3); Specific Gravity, Urine 1.026 (1.002-1.036); Squamous Epithelial 0-3 HPF (0-3); Urobilinogen Normal mg/dL (Less than 2); WBC/HPF 0-3 HPF (0-3); pH, Urine 5.5 (5.0-9.0)
[2021-11-02] MEDS ORDERED: Dicyclomine 10 MG CAP PO PRN (14:37)
[2021-11-02] MEDS ORDERED: Ondansetron PF 4 MG/2 ML Vial IVP PRN (14:38)
[2021-11-02] MEDS ORDERED: Potassium Bicarbonate/Cit Ac 25 MEQ TAB PO SCH (15:00)
[2021-11-02 16:39] VITALS: BMI 12.3
[2021-11-02] MEDS: Lactated Ringer's 1,000 ML IV SCH (17:09)
[2021-11-02] MEDS ORDERED: Famotidine/PF 20 mg/2ml Vial SLOW IVP SCH (21:00)
[2021-11-03] MEDS: Lactated Ringer's 1,000 ML IV SCH ×2 (05:26→21:00)
[2021-11-03 05:39] LABS: SARS-CoV-2 NAA Rapid Test Not Detected (NotDetected)
[2021-11-03 06:28] LABS: #Eosinphils 0.3 thou/uL (0.0-0.7); #Lymphocytes 1.2 thou/uL (1.20-3.40); #Monocytes 0.5 thou/uL (0.11-0.59); #Neutrophils 4.3 thou/uL (1.40-6.50); %Basophils 0.3 % (0.0-1.0); %Eosinophils 5.5 % (0.0-10.0); %Lymphocytes 18.4 % (21.0-51.0); %Monocytes 7.4 % (0.0-10.0); %Neutrophils 68.5 % (42.0-75.0); Hemoglobin 10.8 g/dL (12.0-16.0); Mean Corpuscular HGB CONC 33.2 g/dL (32.0-36.0); Mean Corpuscular Hemoglobin 35.2 pg (27.0-31.0); Mean Platelet Volume 7.2 fL (7.4-10.4); Platelet Count 234 thou/uL (130-400); RBC Distribution Width 12.8 % (11.5-14.5); Red Blood Cell (RBC) Count 3.06 mill/uL (4.20-5.40); White Blood Cell (WBC) Count 6.3 thou/uL (4.8-10.8)
[2021-11-03 06:47] LABS: Anion Gap 12 mmol/L (10-20); BUN (Urea Nitrogen) 11 mg/dL (9.8-20.1); Calc. Creatinine Clearance 37 mL/min (70-130); Carbon Dioxide 21 mmol/L (23-31); Chloride 105 mmol/L (98-107); Glucose 85 mg/dL (83-110); Sodium 134 mmol/L (136-145)
[2021-11-03] MEDS: Cyanocobalamin (Vitamin B-12) 1,000 MCG TAB PO SCH (08:03)
[2021-11-03] MEDS: Folic Acid 1 MG TAB PO SCH (08:10)
[2021-11-03] MEDS ORDERED: Megestrol Acetate 800 MG/20 ML UDCUP PO SCH (09:00)
[2021-11-03] MEDS ORDERED: ceFAZolin 2 GM/DEX 5% 100 ML BAG ONE (09:01)
[2021-11-03] MEDS ORDERED: Ketamine 50 MG/ML (10ML VIAL) ONE (09:57)
[2021-11-03] MEDS ORDERED: Midazolam HCl 2 mg/2 ml Vial ONE (09:57)
[2021-11-03] MEDS ORDERED: PROPOFOL 200 MG/20 ML VIAL ONE (10:07)
[2021-11-03] MEDS ORDERED: Lidocaine 1% PF 5 ML VIAL ONE (10:07)
[2021-11-03] MEDS ORDERED: Fentanyl 100 MCG/2 ML VIAL ONE (11:20)
[2021-11-03] MEDS: HYDROcodone/Acetaminophen 10/325 mg Tablet PO PRN ×2 (15:45→21:30)
[2021-11-03] MEDS: Famotidine/PF 20 mg/2ml Vial SLOW IVP SCH (21:30)
[2021-11-04] MEDS: Lactated Ringer's 1,000 ML IV SCH ×2 (00:09→23:37)
[2021-11-04] MEDS: Metoclopramide HCl 10 MG/2 ML VIAL IVP PRN ×2 (00:21→13:20)
[2021-11-04] MEDS: Ondansetron PF 4 MG/2 ML Vial IVP PRN ×4 (01:08→14:56)
[2021-11-04] MEDS: HYDROcodone/Acetaminophen 10/325 mg Tablet PO PRN ×4 (06:27→23:20)
[2021-11-04 07:34] LABS: #Lymphocytes 0.8 thou/uL (1.20-3.40); #Monocytes 0.4 thou/uL (0.11-0.59); #Neutrophils 7.9 thou/uL (1.40-6.50); %Basophils 0.1 % (0.0-1.0); %Eosinophils 0.2 % (0.0-10.0); %Lymphocytes 8.4 % (21.0-51.0); %Monocytes 4.2 % (0.0-10.0); %Neutrophils 87.2 % (42.0-75.0); Hemoglobin 9.4 g/dL (12.0-16.0); Mean Corpuscular HGB CONC 33.8 g/dL (32.0-36.0); Mean Corpuscular Hemoglobin 35.2 pg (27.0-31.0); Mean Platelet Volume 6.7 fL (7.4-10.4); Platelet Count 193 thou/uL (130-400); RBC Distribution Width 12.4 % (11.5-14.5); Red Blood Cell (RBC) Count 2.68 mill/uL (4.20-5.40); White Blood Cell (WBC) Count 9.1 thou/uL (4.8-10.8)
[2021-11-04 07:57] LABS: Anion Gap 12 mmol/L (10-20); BUN (Urea Nitrogen) 9 mg/dL (9.8-20.1); Calc. Creatinine Clearance 37 mL/min (70-130); Calcium 8.9 mg/dL (7.8-10.44); Carbon Dioxide 26 mmol/L (23-31); Chloride 95 mmol/L (98-107); Glucose 111 mg/dL (83-110); Magnesium 1.6 mg/dL (1.6-2.6); Phosphorus 2.3 mg/dL (2.3-4.7); Potassium 3.7 mmol/L (3.5-5.1); Sodium 129 mmol/L (136-145)
[2021-11-04] MEDS: Cyanocobalamin (Vitamin B-12) 1,000 MCG TAB PO SCH (09:27)
[2021-11-04] MEDS: Folic Acid 1 MG TAB PO SCH (09:28)
[2021-11-04] MEDS: Pantoprazole 40 MG GRANULES PACKET PER TUBE SCH (13:02)
[2021-11-04] MEDS: ALPRAZolam 0.25 MG TAB PER TUBE PRN (17:38)
[2021-11-04] MEDS ORDERED: Pancrelipase DR 12,000 1 CAP FS PRN (18:15)
[2021-11-04] MEDS ORDERED: Sodium Bicarbonate Tab 325 MG TAB PER TUBE PRN (18:15)
[2021-11-04] MEDS: Famotidine/PF 20 mg/2ml Vial SLOW IVP SCH (21:25)
[2021-11-04] MEDS: Enoxaparin Sodium 30 MG/0.3 ML SYRINGE SC SCH (21:25)
[2021-11-05] MEDS: Lactated Ringer's 1,000 ML IV SCH ×2 (01:45→09:21)
[2021-11-05] MEDS: Ondansetron PF 4 MG/2 ML Vial IVP PRN (09:17)
[2021-11-05] MEDS: Enoxaparin Sodium 30 MG/0.3 ML SYRINGE SC SCH ×2 (09:17→21:45)
[2021-11-05] MEDS: Cyanocobalamin (Vitamin B-12) 1,000 MCG TAB PO SCH (09:17)
[2021-11-05] MEDS: Pantoprazole 40 MG GRANULES PACKET PER TUBE SCH (09:17)
[2021-11-05] MEDS: Folic Acid 1 MG TAB PO SCH (09:17)
[2021-11-05] MEDS ORDERED: Ondansetron PF 4 MG/2 ML Vial IVP SCH (10:45)
[2021-11-05] MEDS: Ondansetron PF 4 MG/2 ML Vial IVP SCH ×3 (11:41→21:45)
[2021-11-05] MEDS: Famotidine/PF 20 mg/2ml Vial SLOW IVP SCH (21:43)
[2021-11-06] MEDS: HYDROcodone/Acetaminophen 10/325 mg Tablet PO PRN (02:04)
[2021-11-06] MEDS: Lactated Ringer's 1,000 ML IV SCH (02:04)
[2021-11-06] MEDS: Ondansetron PF 4 MG/2 ML Vial IVP SCH ×2 (05:37→10:37)
[2021-11-06] MEDS: Pantoprazole 40 MG GRANULES PACKET PER TUBE SCH (08:16)
[2021-11-06] MEDS: Folic Acid 1 MG TAB PO SCH (08:16)
[2021-11-06] MEDS: Enoxaparin Sodium 30 MG/0.3 ML SYRINGE SC SCH ×2 (08:17→21:06)
[2021-11-06] MEDS: Cyanocobalamin (Vitamin B-12) 1,000 MCG TAB PO SCH (08:17)
[2021-11-06] MEDS ORDERED: Ondansetron ODT 4 MG TAB PER TUBE PRN (13:00)
[2021-11-06] MEDS ORDERED: Famotidine 20 MG TAB PO SCH (21:00)
[2021-11-06] MEDS: Famotidine/PF 20 mg/2ml Vial SLOW IVP SCH (21:06)
[2021-11-06] MEDS: Acetaminophen 325 MG TAB PO PRN (21:06)
[2021-11-06] MEDS: ALPRAZolam 0.25 MG TAB PER TUBE PRN (21:07)
[2021-11-06] MEDS: Cholecalciferol 1,000 UNITS (25 MCG) TAB PER TUBE SCH (21:07)
[2021-11-07] MEDS: ALPRAZolam 0.25 MG TAB PER TUBE PRN ×2 (06:30→21:05)
[2021-11-07] MEDS: Acetaminophen 325 MG TAB PO PRN ×2 (06:30→21:05)
[2021-11-07] MEDS: Pantoprazole 40 MG GRANULES PACKET PER TUBE SCH (08:53)
[2021-11-07] MEDS: Folic Acid 1 MG TAB PO SCH (08:53)
[2021-11-07] MEDS: Cyanocobalamin (Vitamin B-12) 1,000 MCG TAB PO SCH (08:53)
[2021-11-07] MEDS: Multivit, Therapeutic 1 TAB PER TUBE SCH (08:53)
[2021-11-07 09:15] LABS: Anion Gap 13 mmol/L (10-20); BUN (Urea Nitrogen) 11 mg/dL (9.8-20.1); Calc. Creatinine Clearance 36 mL/min (70-130); Calcium 8.9 mg/dL (7.8-10.44); Carbon Dioxide 30 mmol/L (23-31); Chloride 95 mmol/L (98-107); Glucose 96 mg/dL (83-110); Magnesium 1.9 mg/dL (1.6-2.6); Phosphorus 2.8 mg/dL (2.3-4.7); Potassium 4.2 mmol/L (3.5-5.1); Sodium 134 mmol/L (136-145)
[2021-11-07 09:23] LABS: #Eosinphils 0.5 thou/uL (0.0-0.7); #Lymphocytes 0.9 thou/uL (1.20-3.40); #Monocytes 0.6 thou/uL (0.11-0.59); %Basophils 0.2 % (0.0-1.0); %Eosinophils 5.8 % (0.0-10.0); %Lymphocytes 9.9 % (21.0-51.0); %Neutrophils 77.1 % (42.0-75.0); Hemoglobin 10.6 g/dL (12.0-16.0); Mean Corpuscular HGB CONC 32.7 g/dL (32.0-36.0); Mean Corpuscular Hemoglobin 34.8 pg (27.0-31.0); Mean Platelet Volume 7.4 fL (7.4-10.4); Platelet Count 252 thou/uL (130-400); RBC Distribution Width 12.9 % (11.5-14.5); Red Blood Cell (RBC) Count 3.05 mill/uL (4.20-5.40); White Blood Cell (WBC) Count 9.1 thou/uL (4.8-10.8)
[2021-11-07] MEDS ORDERED: Enoxaparin Sodium 30 MG/0.3 ML SYRINGE SC SCH (21:00)
[2021-11-07] MEDS: Cholecalciferol 1,000 UNITS (25 MCG) TAB PER TUBE SCH (21:05)
[2021-11-07] MEDS: Heparin 5,000 UNITS/ML VIAL SC SCH (21:05)
[2021-11-08] MEDS: Acetaminophen 325 MG TAB PO PRN (06:31)
[2021-11-08] MEDS: ALPRAZolam 0.25 MG TAB PER TUBE PRN (06:31)
[2021-11-08] MEDS: Cyanocobalamin (Vitamin B-12) 1,000 MCG TAB PO SCH (08:36)
[2021-11-08] MEDS: Multivit, Therapeutic 1 TAB PER TUBE SCH (08:36)
[2021-11-08] MEDS: Folic Acid 1 MG TAB PO SCH (08:36)
[2021-11-08] MEDS: Heparin 5,000 UNITS/ML VIAL SC SCH (08:36)
[2021-11-08] MEDS: Pantoprazole 40 MG GRANULES PACKET PER TUBE SCH (08:36)
[2021-11-08 08:41] VITALS: BP 116/67; TEMP 97.8
== END 2021-11-08 15:49 | DRG 640 ==
LOC: ERS 10:48 → ERHOLD 14:38 → T4-B 16:05
PROVIDERS: ADMIT Internal Medicine; ATTEND Internal Medicine
PROC: 0DH63UZ Insertion of Feeding Device into Stomach, Percutaneous Approach (ICD-10-PCS; principal; 2021-11-03)
DX: R62.7 Adult failure to thrive (principal); E43 Unspecified severe protein-calorie malnutrition; Z20.822 Contact with and (suspected) exposure to COVID-19; E87.1 Hypo-osmolality and hyponatremia; I10 Essential (primary) hypertension; I25.10 Atherosclerotic heart disease of native coronary artery without angina pectoris; E86.0 Dehydration; E87.6 Hypokalemia; I71.2 Thoracic aortic aneurysm, without rupture; D53.9 Nutritional anemia, unspecified; E83.42 Hypomagnesemia; E78.5 Hyperlipidemia, unspecified; E78.00 Pure hypercholesterolemia, unspecified; J84.112 Idiopathic pulmonary fibrosis; Z68.1 Body mass index [BMI] 19.9 or less, adult; Z85.3 Personal history of malignant neoplasm of breast; Z90.49 Acquired absence of other specified parts of digestive tract; Z90.13 Acquired absence of bilateral breasts and nipples; Z88.8 Allergy status to other drugs, medicaments and biological substances; Z79.51 Long term (current) use of inhaled steroids; Z79.899 Other long term (current) drug therapy
CPT/HCPCS: 36415; 71045; 74150; 80048; 80053; 81003; 81015; 82550; 83735; 84100; 84484; 85025; 93005; 96360; 96361; J1644; J1650; J2250; J2405; J2704; J2765; J3010; J7120; Q0162; S0028; U0002